=== PATIENT | female | born 1950 | race Caucasian/White ===

== ENCOUNTER → 2022-07-03 | Outpatient (CLI) | payer MEDICARE | END | disposition home or self-care (01) | LOC: RAH 07:51 | PROVIDERS: ATTEND Family Medicine | DX: N64.4 Mastodynia (principal); R92.8 Other abnormal and inconclusive findings on diagnostic imaging of breast | CPT/HCPCS: 76641; 77066 ==

== ENCOUNTER → 2024-07-28 | Outpatient (CLI) | payer MEDICARE | END | disposition home or self-care (01) | LOC: RAH 12:31 | PROVIDERS: ATTEND Family Medicine | DX: Z12.31 Encounter for screening mammogram for malignant neoplasm of breast (principal); R92.323 Mammographic fibroglandular density, bilateral breasts | CPT/HCPCS: 77067 ==

== ENCOUNTER → 2025-07-25 | Outpatient (CLI) | payer MEDICARE ==
[~2025-07-25] MED LIST: GADOTERATE MEGLUMINE 10 MMOL/20 ML VIAL IV ONE
--- NOTE | 2025-07-26 15:37 | HMCIMG ---
EXAM: MR Lumbar Spine Without Intravenous Contrast. CLINICAL HISTORY: Lumbar radiculopathy. TECHNIQUE: Magnetic resonance images of the lumbar spine in multiple planes. CONTRAST: None. COMPARISON: Radiograph dated 12/21/2007. FINDINGS: For this examination, spinal levels were labeled assuming five [id number], lumbar-type vertebrae, with the inferior labeled L5. No acute fracture. Normal lordotic curvature. Multilevel spondylosis is evident by marginal osteophytes and facet joint arthropathy. Multilevel disc desiccation and degenerative disc height reduction are noted, more pronounced at the L5-S1 level. Mild facet joint synovitis at the L3-L4 and L4-L5 levels. Normal vertebral body heights. Modic type I changes in the contiguous endplates at the L4-L5 level. Conus medullaris terminates at the T12-L1 level. No abnormal epidural masses. Mild subcutaneous edema in the lower back. Two, a moderate-sized simple cortical cyst is noted in the left kidney. Individual spinal levels are described as follows: T12-L1: No disc bulge or herniation. No neural foraminal, lateral recess, or spinal canal stenosis. L1-L2: No disc bulge or herniation. No neural foraminal, lateral recess, or spinal canal stenosis. L2-L3: 4 mm disc osteophyte complex bulge and facet joint arthropathy causing mild indentation on the anterior thecal sac and mild bilateral foraminal narrowing. No lateral recess stenosis. L3-L4: 6 mm left predominant disc osteophyte complex bulge and facet joint arthropathy causing mild indentation on the anterior thecal sac and mild left foraminal narrowing. No lateral recess stenosis. L4-L5: 4 mm disc osteophyte complex bulge, ligamentum flavum thickening, and facet joint arthropathy causing mild canal narrowing, severe bilateral lateral recess narrowing with compression of the traversing bilateral L5 nerve roots, and moderate bilateral foraminal narrowing. L5-S1: 6 mm disc osteophyte complex bulge and facet joint arthropathy causing mild indentation on the anterior thecal sac, severe bilateral lateral recess narrowing with compression of the traversing bilateral S1 nerve roots, and mild bilateral foraminal narrowing. IMPRESSION: Moderate multilevel spondylosis and degenerative disc changes. Mild facet joint synovitis at the L3-L4 and L4-L5 levels. Modic type I changes in the contiguous endplates at the L4-L5 level. Mild indentation on the anterior thecal sac and mild bilateral foraminal narrowing at the L2-L3 level. Mild indentation on the anterior thecal sac and mild left foraminal narrowing at the L3-L4 level. Mild canal narrowing, severe bilateral lateral recess narrowing with compression of the traversing bilateral L5 nerve roots, and moderate bilateral foraminal narrowing at the L4-L5 level. Mild indentation on the anterior thecal sac, severe bilateral lateral recess narrowing with compression of the traversing bilateral S1 nerve roots, and mild bilateral foraminal narrowing at the L5-S1 level. /[place]
== END | disposition home or self-care (01) ==
LOC: RAH 13:53
PROVIDERS: ATTEND Family Medicine
DX: M47.26 Other spondylosis with radiculopathy, lumbar region (principal); M48.061 Spinal stenosis, lumbar region without neurogenic claudication; M25.78 Osteophyte, vertebrae; M51.379 Other intervertebral disc degeneration, lumbosacral region without mention of lumbar back pain or lower extremity pain; M48.07 Spinal stenosis, lumbosacral region; M65.98 Unspecified synovitis and tenosynovitis, other site
CPT/HCPCS: 72158; A9575

== ENCOUNTER → 2025-08-05 | Outpatient (CLI) | payer MEDICARE | END | disposition home or self-care (01) | LOC: RAH 12:21 | PROVIDERS: ATTEND Family Medicine | DX: Z12.31 Encounter for screening mammogram for malignant neoplasm of breast (principal) | CPT/HCPCS: 77067 ==